=== PATIENT | female | born 2000 | race Caucasian/White ===

== ENCOUNTER → 2020-09-02 | Day surgery (SDC) | payer BC ==
[~2020-09-02] MED LIST: ESCITALOPRAM OX10 MG PO; TRI-SPRINTEC T1 EACH PO
== END | disposition home or self-care (01) ==
LOC: OR 10:57
DX: M21.611 Bunion of right foot (principal); M21.612 Bunion of left foot; M20.12 Hallux valgus (acquired), left foot; M20.11 Hallux valgus (acquired), right foot; M67.372 Transient synovitis, left ankle and foot; M67.371 Transient synovitis, right ankle and foot; Z20.822 Contact with and (suspected) exposure to COVID-19
CPT/HCPCS: 73630; 76000; 84703; C1713; J0690; J2250; J2704; J2795; J3010; J7030; J7120